=== PATIENT | male | born 1985 | race Caucasian/White ===

== ENCOUNTER 2016-08-18 20:55 | Emergency (ER) | payer SELFPAY ==
[~2016-08-18] VITALS: Ht 170.2 cm; Wt 117.0 kg
[2016-08-18 21:12] VITALS: BP 170/99
== END 2016-08-19 00:39 | disposition home or self-care (01) ==
LOC: ED 20:55
DX: M54.5 Low back pain (principal)
CPT/HCPCS: J1170; J1885; Q0162